=== PATIENT | female | born 2000 | race Caucasian/White ===

== ENCOUNTER 2022-12-03 23:59 | Emergency (ER) | payer SELFPAY ==
[~2022-12-03] VITALS: Ht 147.3 cm; Wt 47.0 kg
[2022-12-04 00:19] VITALS: BP 117/80
== END 2022-12-04 02:30 | disposition left against medical advice (07) ==
LOC: ER 23:59
DX: Z53.21 Procedure and treatment not carried out due to patient leaving prior to being seen by health care provider (principal)
CPT/HCPCS: 99281